=== PATIENT | female | born 1975 | race Two or more races ===

== ENCOUNTER 2019-12-07 07:19 | Emergency (ER) | payer MEDICAID ==
[~2019-12-07] VITALS: Ht 154.9 cm; Wt 58.7 kg
[2019-12-07 07:23] VITALS: BP 128/72
--- NOTE | 2019-12-07 07:33 | NUR ---
PT TO BR AT THIS TIME WITH STEADY GAIT
[2019-12-07 08:23] LABS: MICROSCOPIC INDICATED
[2019-12-07] MEDS ORDERED: PHENAZOPYRIDINE 200 MG TABLET PO ONE (08:30)
[2019-12-07] MEDS ORDERED: PHENAZOPYRIDINE 200 MG TABLET ONE (08:36)
== END 2019-12-07 09:16 | disposition home or self-care (01) ==
LOC: ED 08:46
DX: N30.01 Acute cystitis with hematuria (principal)
CPT/HCPCS: 36415; 81001; 84703; 87077; 87086; 87186; 99283